=== PATIENT | male | born 1995 | race Caucasian/White ===

== ENCOUNTER 2019-12-17 09:27 | Emergency (ER) | payer MEDICAID ==
[~2019-12-17] VITALS: Ht 172.7 cm; Wt 79.4 kg
[2019-12-17 09:31] VITALS: BP 155/96
[2019-12-17] MEDS ORDERED: KETOROLAC 30 MG/ML VIAL IM ONE (10:10)
[2019-12-17 11:40] VITALS: BP 140/90
== END 2019-12-17 11:40 | disposition home or self-care (01) ==
LOC: MED 09:27
DX: K40.90 Unilateral inguinal hernia, without obstruction or gangrene, not specified as recurrent (principal); R10.30 Lower abdominal pain, unspecified; F12.90 Cannabis use, unspecified, uncomplicated
CPT/HCPCS: 74176; 96372; 99284; J1885

== ENCOUNTER 2020-12-04 13:43 | Emergency (ER) | payer MEDICAID ==
[~2020-12-04] VITALS: Ht 175.3 cm; Wt 77.1 kg
[2020-12-04 13:57] VITALS: BP 127/80
[2020-12-04] MEDS ORDERED: LIDOCAINE MPF 1% 10 MG/ML VIAL INJ ONE (14:10)
[2020-12-04] MEDS ORDERED: ACETAMINOPHEN 325 MG TAB PO ONE (14:10)
[2020-12-04] MEDS ORDERED: BACI1PAC6 TP (14:42)
[2020-12-04] MEDS ORDERED: IBUP-2213 PO (14:42)
== END 2020-12-04 15:41 | disposition home or self-care (01) ==
LOC: MED 13:43
DX: S61.211A Laceration without foreign body of left index finger without damage to nail, initial encounter (principal); W26.0XXA Contact with knife, initial encounter; Y93.89 Activity, other specified; Y92.89 Other specified places as the place of occurrence of the external cause; Y99.8 Other external cause status
CPT/HCPCS: 12001; 90471; 90715; 99283; J2001